=== PATIENT | male | born 1955 | race Caucasian/White ===

== ENCOUNTER → 2021-07-17 11:00 | Outpatient (BNVA) | payer MEDICARE, OTHER, SELFPAY | PROVIDERS: Visit Provider Nurse Practitioner Family | DX: I10 Essential (primary) hypertension (principal); Z12.5 Encounter for screening for malignant neoplasm of prostate | CPT/HCPCS: 80053; 80061; 84443; 85025; G0103 ==

== ENCOUNTER → 2021-08-27 09:19 | Outpatient (BNVA) | payer MEDICARE, OTHER, SELFPAY | PROVIDERS: PCP Nurse Practitioner Family; Visit Provider Nurse Practitioner Family | DX: R19.7 Diarrhea, unspecified (principal); Z90.49 Acquired absence of other specified parts of digestive tract; R19.8 Other specified symptoms and signs involving the digestive system and abdomen; K64.9 Unspecified hemorrhoids | CPT/HCPCS: 74018 ==

== ENCOUNTER → 2021-08-28 09:16 | Outpatient (BNVA) | payer MEDICARE, OTHER, SELFPAY | PROVIDERS: PCP Nurse Practitioner Family; Visit Provider Nurse Practitioner Family | DX: K64.9 Unspecified hemorrhoids (principal); R19.7 Diarrhea, unspecified; R19.8 Other specified symptoms and signs involving the digestive system and abdomen; Z90.49 Acquired absence of other specified parts of digestive tract; R10.9 Unspecified abdominal pain | CPT/HCPCS: 80053; 85025 ==

== ENCOUNTER 2021-09-18 09:32 | Outpatient (CLI) | payer MEDICARE, OTHER, SELFPAY ==
[2021-09-18] MEDS: iodixanol 320 mg/mL 100mL Btl IV (09:45)
[2021-09-18] MEDS: iohexol 300 mg/mL 50 mL Btl PO (09:45)
--- NOTE | 2021-09-18 10:00 | CT_ITS ---
WS: [id number] CT ABDOMEN AND PELVIS WITH CONTRAST HISTORY: Right-sided flank pain. Bloating, rectal restriction. History of colectomy and ulcerative co litis. TECHNIQUE: Imaging performed of the abdomen and pelvis with IV contrast. Single phase imaging of the abdomen. Coronal and sagittal reformats are submitted. All CT scans at [facility] use at [address] one of these dose optimization techniques: automated exposure control; mA and/or kV adjustment per patient size (includes targeted exams where dose is matched to clinical indication); or iterative re construction. IV CONTRAST: Visipaque 320; 95 mL IV. Oral contrast: Yes. DLP: 1145.16 mGy.cm COMPARISON: None available. Lower thorax: 2 mm nodule LEFT middle lobe may be a granuloma. Additional granuloma at the LEFT lung base. Heart is normal size. No hiatal hernia. Liver/biliary system: Normal size with no intrahepatic dilatation. Mild hepatic steatosis along the f alciform ligament. The portal vein is negative. Gallbladder: Contracted gallbladder. No adjacent inflammation. Pancreas: Normal size pancreas and pancreatic duct. No adjacent inflammation. Spleen: Normal size spleen. No mass or infarct. Adrenal glands: Normal. Right kidney: There is a large cystic mass associated with the upper pole of the RIGHT kidney. Mass m easures 9.8 x 4.4 cm and is causing mild distortion and displacement of the kidney. No solid mass or obstruction. Left kidney: Very tiny cortical hypodensities are too small to characterize. No solid mass or obstruc tion. Aorta: Mild atherosclerosis with no aneurysm. Lymphadenopathy: None. Free fluid: None. GI tract: Normally distended stomach. No small bowel obstruction. Patient is status post near complet e colectomy. Anastomotic sutures are noted towards the rectum. There is no obstruction. The small bow el loops are normal. No wall thickening. Abdominal wall: Unremarkable abdominal wall. No hernia. Pelvis: No free fluid. There are very few small benign-appearing lymph nodes in the pelvis. No inguin al adenopathy. Inguinal canals are patent bilaterally containing fat only. Negative urinary bladder. Bones: Unremarkable. CT/CT abdomen pelvis w con* [id number] IMPRESSION: 1. No acute abdominal or pelvic abnormalities are notified. 2. Patient is status post near complete colectomy. 3. No GI tract obstruction. 4. Large RIGHT renal cyst measures 9.8 x 4.4 cm. 5. Mildly contracted gallbladder is probably due to a nonfasting state.
== END 2021-09-18 09:33 | disposition home or self-care (01) ==
LOC: RAD 09:35
PROVIDERS: PCP Nurse Practitioner Family; Visit Provider Nurse Practitioner Family
DX: R19.7 Diarrhea, unspecified (principal); R10.9 Unspecified abdominal pain; Z90.49 Acquired absence of other specified parts of digestive tract; R19.8 Other specified symptoms and signs involving the digestive system and abdomen; N28.1 Cyst of kidney, acquired
CPT/HCPCS: 74177

== ENCOUNTER → 2022-06-04 10:52 | Outpatient (BNVA) | payer MEDICARE, OTHER, SELFPAY | PROVIDERS: PCP Nurse Practitioner Family; Visit Provider Nurse Practitioner Family | DX: M10.9 Gout, unspecified (principal); I10 Essential (primary) hypertension | CPT/HCPCS: 80053; 84550; 85025 ==

== ENCOUNTER 2022-06-08 09:26 | Outpatient (CLI) | payer MEDICARE, OTHER, SELFPAY ==
--- NOTE | 2022-06-08 09:30 | MR_ITS ---
WS: [id number] MRI RIGHT KNEE NONCONTRAST TECHNIQUE: Axial PD, coronal PD fat sat, coronal PD, sagittal PD, and sagittal PD fat-sat images obta ined. CLINICAL INFORMATION: M25.561 - Pain in right knee COMPARISON: None. FINDINGS: Distal quadriceps and patella tendons are intact. Normal ACL and PCL. Hypertrophic patella. Moderate to advanced narrowing medial and lateral joint compartments worse in the medial joint compartment wit h [id number] articulation. Chronic appearing tear involving the medial meniscus with peripheral ext rusion and chronic thinning. 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 Associated subchondral edema. Lobulated ganglion cyst along the distal tibial diametaphysis. Lobulated ganglion cyst measures 11 x 14 mm. Moderate chondromalacia patella. No subchondral edema. Normal medial and lateral patellar retinaculum . Normal lateral collateral ligament. Medial collateral ligament appears intact. Small amount of flui d and edema along the medial collateral ligament consistent with grade 1-2 injury. Parameniscal cyst along the medial meniscus. Small perimeniscal cyst measures 5 mm. MR/MR knee RT wo con* [id number] IMPRESSION: 1. Normal ACL and PCL. 2. Advanced medial joint compartment narrowing with [id number] articulation with subchondral cystic change involving the femoral condyle and tibial plateau . 3. Chronic appearing tear involving the medial meniscus with peripheral extrus ion. 4. Medial collateral ligament appears grossly intact but somewhat diminutive l ikely due to prior partial tear. Small amount of fluid and edema along the MCL. 5. Normal LCL. 6. 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 Outbridge grading: grade IV: full-thickness cartilage loss with underlying bone reactive changes
== END 2022-06-08 09:27 | disposition home or self-care (01) ==
LOC: RAD 09:27
PROVIDERS: PCP Nurse Practitioner Family; Visit Provider Nurse Practitioner Family
DX: M94.261 Chondromalacia, right knee (principal); S83.241A Other tear of medial meniscus, current injury, right knee, initial encounter; X58.XXXA Exposure to other specified factors, initial encounter
CPT/HCPCS: 73721

== ENCOUNTER → 2022-06-17 09:28 | Outpatient (BNVA) | payer MEDICARE, OTHER, SELFPAY | PROVIDERS: PCP Nurse Practitioner Family; Visit Provider Nurse Practitioner Family | DX: G89.29 Other chronic pain (principal); M23.90 Unspecified internal derangement of unspecified knee; M25.369 Other instability, unspecified knee; M25.561 Pain in right knee | CPT/HCPCS: 73562 ==

== ENCOUNTER → 2022-10-06 09:22 | Outpatient (BNVA) | payer MEDICARE, OTHER, SELFPAY | PROVIDERS: PCP Nurse Practitioner Family; Visit Provider Family Medicine | DX: Z51.81 Encounter for therapeutic drug level monitoring (principal); R53.81 Other malaise; R53.83 Other fatigue; R35.0 Frequency of micturition; E55.9 Vitamin D deficiency, unspecified; M1A.9XX0 Chronic gout, unspecified, without tophus (tophi); R73.09 Other abnormal glucose; Z13.220 Encounter for screening for lipoid disorders; N18.9 Chronic kidney disease, unspecified; I12.9 Hypertensive chronic kidney disease with stage 1 through stage 4 chronic kidney disease, or unspecified chronic kidney disease | CPT/HCPCS: 80053; 80061; 82306; 83036; 84153; 84443; 84550; 85025 ==

== ENCOUNTER 2022-12-16 12:42 | Outpatient (CLI) | payer MEDICARE, OTHER, SELFPAY ==
--- NOTE | 2022-12-16 12:44 | XR_ITS ---
WS: [id number] Exam: XR chest 2V* [id number] Date/Time of Exam: 12/16/2022 12:52 PM Reason For Exam: Chest pain No priors. The lungs are clear and fully inflated. Normal cardiomediastinal silhouette and regional bony element s. Tortuosity of the thoracic aorta. Surgical clips in the bilateral upper abdomen. XR/XR chest 2V* [id number] IMPRESSION: 1. No acute cardiopulmonary finding.
== END 2022-12-16 12:43 | disposition home or self-care (01) ==
PROVIDERS: PCP Family Medicine; Visit Provider Family Medicine
DX: R07.9 Chest pain, unspecified (principal)
CPT/HCPCS: 71046; 84484

== ENCOUNTER 2023-02-19 06:00 | Outpatient (RCR) | payer MEDICARE, OTHER, SELFPAY | END 2023-03-20 23:59 | disposition home or self-care (01) | LOC: APT 06:00 | PROVIDERS: Visit Provider Orthopaedic Surgery | DX: Z47.1 Aftercare following joint replacement surgery (principal); Z96.652 Presence of left artificial knee joint | CPT/HCPCS: 97110; 97112; 97530 ==

== ENCOUNTER 2023-03-21 06:00 | Outpatient (RCR) | payer MEDICARE, OTHER, SELFPAY | END 2023-04-20 23:59 | disposition home or self-care (01) | LOC: APT 06:00 | PROVIDERS: Visit Provider Orthopaedic Surgery | DX: Z47.1 Aftercare following joint replacement surgery (principal); Z96.652 Presence of left artificial knee joint | CPT/HCPCS: 97110; 97112; 97140; 97530 ==

== ENCOUNTER 2023-04-21 06:00 | Outpatient (RCR) | payer MEDICARE, OTHER, SELFPAY | END 2023-05-20 23:59 | disposition home or self-care (01) | LOC: APT 06:00 | PROVIDERS: Visit Provider Orthopaedic Surgery | DX: Z47.1 Aftercare following joint replacement surgery (principal); Z96.652 Presence of left artificial knee joint | CPT/HCPCS: 97110; 97140; 97530 ==

== ENCOUNTER → 2023-09-28 11:38 | Outpatient (BNVA) | payer MEDICARE, OTHER, SELFPAY | PROVIDERS: PCP Family Medicine; Visit Provider Family Medicine | DX: I10 Essential (primary) hypertension (principal); Z51.81 Encounter for therapeutic drug level monitoring; R35.0 Frequency of micturition; R03.0 Elevated blood-pressure reading, without diagnosis of hypertension; E55.9 Vitamin D deficiency, unspecified; E11.9 Type 2 diabetes mellitus without complications; R30.0 Dysuria; Z13.220 Encounter for screening for lipoid disorders | CPT/HCPCS: 80053; 80061; 81000; 82306; 83036; 84153; 84550; 85025; 87077; 87086; 87184 ==

== ENCOUNTER 2023-10-06 09:59 | Outpatient (CLI) | payer MEDICARE, OTHER, SELFPAY ==
--- NOTE | 2023-10-06 10:00 | US_ITS ---
WS: [id number] RENAL ULTRASOUND URINARY BLADDER ULTRASOUND HISTORY: CKD, UTI, urgency [id number] COMPARISON: CT abdomen 09/18/2021 TECHNIQUE: 2-D and color Doppler imaging of the kidney submitted. Right kidney: 10.5 cm x 6.9 cm x 6.7 cm. Large simple cyst RIGHT kidney superior pole measures 8.9 x 9.3 x 9.6 cm. No solid mass or obstructio n. The remaining kidney is negative. Left kidney: 9.2 cm x 3.5 cm x 4.3 cm. Normal echogenicity with no hydronephrosis or mass. Aorta: Normal. Urinary Bladder: Nondistended bladder. Mild prostate enlargement. Prevoid volume: 201 mL. Post void volume: 78 mL. IMPRESSION: 1. No renal obstruction or solid mass. 2. Large cyst upper pole RIGHT kidney. 3. Mild postvoid volume residual.
== END 2023-10-06 10:00 | disposition home or self-care (01) ==
LOC: RAD 10:01
PROVIDERS: PCP Family Medicine; Visit Provider Family Medicine
DX: N18.9 Chronic kidney disease, unspecified (principal); N39.0 Urinary tract infection, site not specified; R35.0 Frequency of micturition; N28.1 Cyst of kidney, acquired
CPT/HCPCS: 76770; 76857

== ENCOUNTER 2024-08-24 15:05 | Outpatient (CLI) | payer MEDICARE, OTHER, SELFPAY ==
--- NOTE | 2024-08-24 15:09 | XRR_ITS ---
PROCEDURE INFORMATION: Exam: XR Chest Exam date and time: 08/24/2024 3:25 PM Age: 69 years old Clinical indication: Pain; Chest pressure; Additional info: Chest pains and cough x 3 wks TECHNIQUE: Imaging protocol: Radiologic exam of the chest. Views: 2 views. COMPARISON: CR XR chest 2V* [id number] 12/16/2022 12:53 PM FINDINGS: Lungs: No significant active pathology. Pleural spaces: No pleural effusion or pneumothorax. Heart/Mediastinum: Unremarkable. Diaphragm: Mildly elevated right hemidiaphragm. Bones/joints: Mild degenerative change present in the spine. Intraperitoneal space: Surgical clips noted in the upper abdomen. XR/XR chest 2V* [id number] IMPRESSION: No acute pathology or significant interval change.
== END 2024-08-24 15:06 | disposition home or self-care (01) ==
LOC: RAD 15:09
PROVIDERS: PCP Family Medicine; Visit Provider Family Medicine
DX: R07.9 Chest pain, unspecified (principal); Z51.81 Encounter for therapeutic drug level monitoring; R25.2 Cramp and spasm; R93.5 Abnormal findings on diagnostic imaging of other abdominal regions, including retroperitoneum; M47.9 Spondylosis, unspecified
CPT/HCPCS: 71046; 80053; 83735

== ENCOUNTER 2024-09-09 11:12 | Emergency (ER) | payer MEDICARE, SELFPAY ==
[2024-09-09 12:01] VITALS: BP 126/79; PULSE 92; RESP 18; TEMP 36.7; O2SAT 96; BMI 27.1
--- NOTE | 2024-09-09 12:14 | XRR_ITS ---
PROCEDURE INFORMATION: Exam: XR Chest Exam date and time: 09/09/2024 12:33 PM Age: 69 years old Clinical indication: Chest pressure; Chest pain TECHNIQUE: Imaging protocol: Radiologic exam of the chest. Views: 1 view. COMPARISON: CR XR chest 2V* [id number] 08/24/2024 3:25 PM FINDINGS: Lungs: Pulmonary vessels are within normal limits. Bibasilar linear densities are seen. Pleural spaces: No pneumothorax. Heart/Mediastinum: Cardiomediastinal silhouette is within normal limits. Bones/joints: Unremarkable. XR/XR chest 1V portable [id number] IMPRESSION: Bibasilar linear densities are seen. Finding could represent scarring or atelectasis.
--- NOTE | 2024-09-09 12:19 | ED_ITS ---
HPI - Back Pain/Injury 2 General: Chief Complaint: Back Pain/Injury Stated Complaint: back pain Time Seen by Provider: 09/09/24 12:00 Source: patient Mode of arrival: ambulatory Limitations: no limitations History of Present Illness: 69-year-old male states has been having right upper back pain for the last 2 days states it wraps around his chest states much worse with movement and palpation denies any known injury he denies any weakness denies any midline pain. He denies any shortness of breath Associated symptoms: Deny abdominal pain, chills, fever(s), nausea or vomiting Related Data Previous Rx's ?Medication ?Instructions ?Recorded allopurinol 100 mg tablet 100 mg PO DAILY #90 tabs lisinopril 10 mg tablet 10 mg PO DAILY #90 tabs 06/21 01/12 methocarbamol 750 mg tablet 750 mg PO Q6H PRN spasms # 20 tabs 09/09/24 Allergies Allergy/AdvReac Type Severity Reaction Status Date / Time No Known Allergies Allergy Unverified 05/28/22 14:33 Review of Systems 2 Const: Denies: fever(s), chills, body aches or change in appetite ENMT: Denies: throat pain or dental pain Card: Denies: chest pain Resp: Denies: dyspnea GI: Denies: abdominal pain, nausea, vomiting or diarrhea Musc: Reports: back pain; Denies: neck pain Skin/Breast: Denies: rash Neuro: Denies: headache(s) PFSH ED 2 PFSH: Medical History (Updated 09/09/24 @ 14:47 by Vaibhav Chew MD) Primary hypertension Surgical History H/O tooth extraction 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/2023 - Dr Croft History of surgical amputation of finger Left fourth distal finger H/O left knee surgery Meniscal tear History of colectomy History of partial surgical removal of colon Family History Brother Crohn's disease Brother Ulcerative colitis Father CAD (coronary artery disease), Onset Age: 72 Mother CAD (coronary artery disease), Onset Age: 92 of CHF Social History Smoking and tobacco/nicotine status: never used tobacco/nicotine Quit status (tobacco/nicotine): has quit using Year quit tobacco: 2005 Former quit date comment: Chewed tobacco Second hand smoke exposure: No Alcohol intake: never Substance/Drug Use: never 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 history: 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, 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 Adopted: No Caregiver/support person: No Lives independently: Yes Household members: spouse Housing: House Marital status: Number of children: 3 Highest education level completed: High School Graduate service: No Current occupational status: retired Physical Exam 2 Const: COMMON NORMALS: no acute distress, patient oriented x3 and healthy appearing HENMT: COMMON NORMALS: normocephalic and atraumatic HEAD & SCALP: n ormocephalic and atraumatic Eye: COMMON NORMALS: conjunctivae normal CONJUNCTIVA: Yes conjunctivae normal Neck/C-Spine: COMMON NORMALS: full ROM and supple Chest: COMMONS NORMALS: normal inspection of the chest and normal palpation of entire chest wall Resp: COMMON NORMALS: normal respiratory effort, No retractions, No use of accessory muscles and clear to auscultation bilaterally AUSCULTATION: clear to auscultation bilaterally Cardio: COMMON NORMALS: regular rate, regular rhythm and No murmurs present (Cardio) RATE: regular rate RHYTHM: regular rhythm GI: COMMON NORMALS: Normal to inspection, nondistended, normoactive bowel sounds present, Soft to palpation, non-tender and no masses PALPATION: Yes Soft to palpation Back/Pelvis: OTHER: No midline tenderness tenderness over right upper back reproduces his pain Extremity: COMMON NORMALS: normal to inspection and full ROM Neuro: COMMON NORMALS: patient oriented x3, moves all extremities and no focal motor deficits Psych: COMMON NORMALS: mental status grossly normal, Normal thought process present and cooperative THOUGHT PROCESS: Normal thought process present Skin: COMMON NORMALS: no rashes or lesions noted and no wounds GENERAL SKIN EXAM: no rashes or lesions noted Course 2 Vital Signs: Vital signs: Vital Signs Temperature 98.1 F 09/09/24 12:01 Pulse Rate 91 09/09/24 14:09 Respiratory Rate 18 09/09/24 12:01 Blood Pressure 129/80 09/09/24 14:09 Pulse Oximetry 93 09/09/24 14:09 Oxygen Delivery Me thod Room Air 09/09/24 14:09 MDM - Back Pain/Injury Medical Decision Making Patient presents here with back pain is likely muscular in nature he is point tender on exam he had some pain wrap to his chest is atypical in nature troponins are normal imaging is normal as well he feels improved he stable for discharge follow-up PCP return if worsening. Medical Records I reviewed the patient's medical records. Labs I reviewed the patient's lab results. 09/09/24 12:29 09/09/24 12:29 Radiology Impressions Chest X-Ray 09/09/24 12:14 IMPRESSION: Bibasilar linear densities are seen. Finding could represent scarring or atelectasis. Laboratory Results WBC 8.74 10^3/uL (3.29-11.43) 09/09/24 12: RBC 4.40 10^6/uL (3.85-5.65) 09/09/24 12: Hgb 13.80 g/dL (11.27-16.99) 09/09/24 12: Hct 41.9 % (37-53) 09/09/24 12: MCV 95.2 fl (82-101) 09/09/24 12: MCH 31.4 pg (27-33) 09/09/24 12: MCHC 32.9 g/dL (30-55) 09/09/24 12: RDW 12.2 % (12.1-15.1) 09/09/24 12: Plt Count 279 10^3/cmm (157-399) 09/09/24 12: MPV 9.4 fL (7.4-10.4) 09/09/24 12: Neut % (Auto) 75.6 % 09/09/24 12: Lymph % (Auto) 12.9 % 09/09/24 12: [place] % (Auto) 10.6 % 09/09/24 12: Eos % (Auto) 0.3 % 09/09/24 12: Baso % (Auto) 0.3 % 09/09/24 12: Neut # (Auto) 6.59 10^3/uL (1.8-7.7) 09/09/24 12: Lymph # (Auto) 1.1 10^3/uL (0.8-4.8) 09/09/24 12:29 [place] # (Auto) 0.9 10^3/uL (0.2-0.9) 09/09/24 12: Eos # (Auto) 0.0 10^3/uL (0.0-0.8) 09/09/24 12: Baso # (Auto) 0.0 10^3/uL (0.0-0.1) 09/09/24 12: Nucleated RBC % (auto) 0 % 09/09/24 12: Nucleated RBCs # 0.0 /100WBC 09/09/24 12: Sodium 134 mmol/L (136-145) L 09/09/24 12: Potassium 4.4 mmol/L (3.5-5.1) 09/09/24 12: Chloride 97 mmol/L (98-107) L 09/09/24 12: Carbon Dioxide 24 mmol/L (22-29) 09/09/24 12: Anion Gap 17.4 (5-19) 09/09/24 12: BUN 13 mg/dL (8-23) 09/09/24 12: Creatinine 1.2 mg/dL (0.7-1.2) 09/09/24 12: GFR Calculation Not Reportable 09/09/24 12: Glucose 101 mg/dL (65-115) 09/09/24 12: Calculated Osmolality 278 mOsm/kg (285-295) L 09/09/24 12: Calcium 9.3 mg/dL (8.5-10.5) 09/09/24 12: Total Bilirubin 0.6 mg/dL (0.15-1.2) 09/09/24 12: AST 13 U/L (0-40) 09/09/24 12: ALT < 5 U/L (0-41) 09/09/24 12: Alkaline Phosphatase 27 U/L (40-130) L 09/09/24 12: Troponin T Baseline 22 ng/L (0-15) H 09/09/24 12:29 Troponin T 120 Minute 16.37 ng/L (0-15) H 09/09/24 14:16 Delta Troponin T -5.63 ABS# (0-10) L 09/09/24 14:16 Total Protein 7.4 g/dL (6.6-8.7) 09/09/24 12: Albumin 4.2 g/dL (3.5-5.2) 09/09/24 12: Globulin 3.2 g/dL (1.3-4.6) 09/09/24 12:29 Urine Color Yellow (Yellow) 09/09/24 12:41 Urine Appearance Clear (CLEAR) 09/09/24 12:41 Urine pH 5.0 (5-7) 09/09/24 12:41 Ur Specific [place] 1.024 (1.005-1.030) 09/09/24 12:41 Urine Protein Trace (Negative) A 09/09/24 12:41 Urine Glucose (UA) Negative (Normal) 09/09/24 12:41 Urine Ketones Trace (Negative) 09/09/24 12:41 Urine Blood Negative (Negative) 09/09/24 12:41 Urine Nitrate Negative (Negative) 09/09/24 12:41 Urine Bilirubin Negative (Negative) 09/09/24 12:41 Urine Urobilinogen 0.2 mg/dL (Negative) 09/09/24 12:41 Ur Leukocyte Esterase Negative (Negative) 09/09/24 12:41 Urine RBC 0-2 /hpf (0-2) 09/09/24 12:41 Urine WBC 0-5 /hpf (0-5) 09/09/24 12:41 Ur Squamous Epith Cells 0-5 /hpf (0-5) 09/09/24 12:41 Amorphous Sediment Not Reportable 09/09/24 12:41 Urine Bacteria None seen /hpf (NONE) 09/09/24 12:41 Hyaline Casts 3.30 /lpf 09/09/24 12:41 All radiology interpretation(s) finalized by discharge EKG Data EKG 1: I personally reviewed and interpreted this EKG as follows: EKG interpretation date: 09/09/24 EKG interpretation time: 12:24 Interpretation: nsr hr [address] elevation qrs 88 qtc 378 Discharge Plan Discharge Patient Disposition: Home Clinical Impression: Back pain Condition: Stable Prescriptions: New methocarbamol 750 mg tablet 750 mg PO Q6H PRN (Reason: spasms) Qty: 20 0RF No Action lisinopril 10 mg tablet 10 mg PO DAILY Qty: 90 3RF allopurinol 100 mg tablet 100 mg PO DAILY Qty: 90 3RF Discharge Orders: Discharge ED (Routine); Ordered 09/09/24 Ordered By: Vaibhav Chew Referrals: Hawk Townsend MD [Primary Care Provider] - 4-7 days Discharge Diet: Advance as tolerated Discharge Activity: Resume usual activity Patient Instructions: Back Pain (ED) Print Language: Portuguese Coding Level of Care Code ED Diesel Engine Mechanic Apprentice for Michael Garza
--- NOTE | 2024-09-09 12:24 | ECG_ITS ---
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 Measurements Intervals [place] Rate: 90 P: 60 DE: 171 QRS: 35 QRSD: 88 T: 55 QT: 330 QTc: 405 Interpretive Statements SINUS RHYTHM No previous ECG available for comparison Electronically Signed On 09-09-2024 14:39:41 CDT by Rashid Lopez M.D. [email or web address]
[2024-09-09 12:44] LABS: Basophils % 0.3 %; Eosinophils % 0.3 %; Hematocrit 41.9 % (37-53); Lymphocytes # 1.1 10^3/uL (0.8-4.8); Lymphocytes % 12.9 %; Mean Corpuscular HGB Conc 32.9 g/dL (30-55); Mean Corpuscular Hemoglobin 31.4 pg (27-33); Mean Corpuscular Volume 95.2 fl (82-101); Mean Platelet Volume 9.4 fL (7.4-10.4); Monocytes # 0.9 10^3/uL (0.2-0.9); Monocytes % 10.6 %; Neutrophils # 6.59 10^3/uL (1.8-7.7); Neutrophils % 75.6 %; Nucleated Red Blood Cells % 0 %; Platelet Count 279 10^3/cmm (157-399); Red Cell Distribution Width 12.2 % (12.1-15.1); White Blood Count 8.74 10^3/uL (3.29-11.43)
[2024-09-09 12:52] LABS: Bilirubin Urine Negative (Negative); Blood Urine Negative (Negative); Glucose Urine UA Negative (Normal); Ketones Urine Trace (Negative); Leukocyte Esterase Urine Negative (Negative); Nitrate Urine Negative (Negative); Protein Urine Trace (Negative); Specific Gravity, Urine 1.024 (1.005-1.030); Urine Appearance Clear (CLEAR); Urine Color Yellow (Yellow); Urobilinogen Urine 0.2 mg/dL (Negative)
[2024-09-09 12:54] LABS: Troponin(5th) Baseline 22 ng/L (0-15)
[2024-09-09 12:55] LABS: Add Urine Microscopic? YES; Bacteria Urine None Seen /hpf; RBC Urine 0-2 /hpf (0-2); Squamous Epithelial Cell Urine 0-5 /hpf (0-5); WBC Urine 0-5 /hpf (0-5)
[2024-09-09 13:01] LABS: Alanine Aminotransferase < 5 U/L (0-41); Albumin Level 4.2 g/dL (3.5-5.2); Alkaline Phosphatase 27 U/L (40-130); Anion Gap 17.4 (5-19); Aspartate Amino Transferase 13 U/L (0-40); Blood Urea Nitrogen 13 mg/dL (8-23); Calcium 9.3 mg/dL (8.5-10.5); Carbon Dioxide 24 mmol/L (22-29); Chloride 97 mmol/L (98-107); Creatinine Clr Calc Pharmacy 54.9138; Globulin 3.2 g/dL (1.3-4.6); Glucose 101 mg/dL (65-115); Osmolality Calculated 278 mOsm/kg (285-295); Potassium 4.4 mmol/L (3.5-5.1); Sodium 134 mmol/L (136-145); Total Bilirubin 0.6 mg/dL (0.15-1.2); Total Protein 7.4 g/dL (6.6-8.7)
[2024-09-09 14:09] VITALS: BP 129/80; PULSE 91; O2SAT 93
[2024-09-09] MEDS: HYDROcodone-acetaminophen 7.5-325 mg Tablet 1 TAB PO (14:10)
[2024-09-09 14:41] LABS: Troponin 5 2HR 16.37 ng/L (0-15)
[2024-09-09 14:42] LABS: Troponin 5 2HR Delta -5.63 ABS# (0-10)
[2024-09-09 15:03] VITALS: BP 126/80; PULSE 88; RESP 16; O2SAT 92
== END 2024-09-09 15:05 | disposition home or self-care (01) ==
PROVIDERS: Emergency Provider Emergency Medicine; PCP Family Medicine
DX: M54.9 Dorsalgia, unspecified (principal); Z87.891 Personal history of nicotine dependence; I10 Essential (primary) hypertension
CPT/HCPCS: 36415; 71045; 80053; 81001; 84484; 85025; 93005; 99285; J9999

== ENCOUNTER 2024-09-20 08:30 | Emergency (ER) | payer MEDICARE, SELFPAY ==
[2024-09-20] VITALS (13 sets, daily range): BP systolic 111–138; BP diastolic 75–90; PULSE 62–82; RESP 14–16; TEMP 36.7; O2SAT 90–94; BMI 25.8
--- NOTE | 2024-09-20 08:38 | ECG_ITS ---
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
--- NOTE | 2024-09-20 08:58 | ED_ITS ---
HPI - Dizziness 2 General: Chief Complaint: Dizziness Stated Complaint: dizzy, weakness, seeing double Time Seen by Provider: 09/20/24 08:50 History of Present Illness: HPI Narrative: Patient presents to the ER with complaints of intermittent dizziness and seeing double for the last week or so. Patient states it has been getting worse and started last night and stayed all throughout the night. Patient also had some confusion and inability to form words. He is also complaining of a sinus type headache that he gets frequently. Patient recently was in the ER for chest pain and was discharged home on a muscle relaxer. Patient thought the muscle relaxer was causing it but he stopped it and his symptoms did not improve. Patient's only medications are allopurinol for gout and lisinopril for high blood pressure. Related Data Home Medications ?Medication ?Instructions ?Recorded ?Confirmed lactobacillus combination no.4 3 3,000 mmu cells PO DA ROSETTA 09/20/24 09/20/24 billion cell capsule (Probiotic) Previous Rx's ?Medication ?Instructions ?Recorded allopurinol 100 mg tablet 100 mg PO DAILY #90 tabs lisinopril 10 mg tablet 10 mg PO DAILY #90 tabs 06/21 01/12 methocarbamol 750 mg tablet 750 mg PO Q6H PRN spasms # 20 tabs 09/09/24 Allergies Allergy/AdvReac Type Severity Reaction Status Date / Time No Known Allergies Allergy Unverified 05/28/22 14:33 Review of Systems 2 General: Reports: 10 or more systems reviewed and unremarkable except in HPI and below PFSH ED 2 PFSH: Medical History Primary hypertension Surgical History H/O tooth extraction 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/2023 - Dr Croft History of surgical amputation of finger Left fourth distal finger H/O left knee surgery Meniscal tear History of colectomy History of partial surgical removal of colon Family History Brother Crohn's disease Brother Ulcerative colitis Father CAD (coronary artery disease), Onset Age: 72 Mother CAD (coronary artery disease), Onset Age: 92 of CHF Social History Smoking and tobacco/nicotine status: never used tobacco/nicotine Quit status (tobacco/nicotine): has quit using Year quit tobacco: 2005 Former quit date comment: Chewed tobacco Second hand smoke exposure: No Alcohol intake: never Substance/Drug Use: never 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 history: 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, 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 Adopted: No Caregiver/support person: No Lives independently: Yes Household members: spouse Housing: House Marital status: Number of children: 3 Highest education level completed: High School Graduate service: No Current occupational status: retired Physical Exam 2 Const: COMMON NORMALS: no acute distress, average body habitus, patient oriented x3, no limitations, healthy appearing, alert and well nourished HENMT: COMMON NORMALS: normocephalic, atraumatic, hearing grossly normal bilaterally, external ears normal, EAC's normal, TM's normal bilaterally, Normal external nose present, Normal nasal mucous membranes and turbinates present, moist oral mucous membranes and oropharynx normal HEAD & SCALP: normocephalic and atraumatic NOSE: Normal external nose present and Normal nasal mucous membranes and turbinates present EXTERNAL EAR: Yes external ears normal E XTERNAL AUDITORY CANAL: EAC's normal TYMPANIC MEMBRANE: TM's normal bilaterally Neck/C-Spine: COMMON NORMALS: full ROM, no lymphadenopathy, supple, no meningeal signs and no JVD Chest: COMMONS NORMALS: normal inspection of the chest and normal palpation of entire chest wall Resp: COMMON NORMALS: normal respiratory effort, No retractions, No use of accessory muscles and clear to auscultation bilaterally AUSCULTATION: clear to auscultation bilaterally Cardio: COMMON NORMALS: no JVD, regular rate, regular rhythm, S1 normal heart sound present, S2 normal heart sound present, No gallops present (Cardio), No clicks present (Cardio), No murmurs present (Cardio) and No rub (Cardio) R ATE: regular rate RHYTHM: regular rhythm HEART SOUNDS: S1 normal heart sound present and S2 normal heart sound present GI: COMMON NORMALS: Normal to inspection, nondistended, normoactive bowel sounds present, Soft to palpation, non-tender, No hepatosplenomegaly present and no masses PALPATION: Yes Soft to palpation and Yes No hepatosplenomegaly present Neuro: COMMON NORMALS: patient oriented x3 SENSORIUM/ORIENTATION: Yes alert MENINGEAL SIGNS: Yes no meningeal signs Course 2 Vital Signs: Vital signs: Vital Signs Temperature 98.0 F 09/20/24 08:39 Pulse Rate 82 09/20/24 16:00 Respiratory Rate 16 09/20/24 08:39 Blood Pressure 119/75 09/20/24 16:00 Pulse Oximetry 92 09/20/24 16:00 Oxygen Delivery Me thod Room Air 09/20/24 16:00 MDM - Dizziness Medical Decision Making Per CT patient probably has metastatic cancer with thrombosed SMV, we cannot take care of this here and will need to transfer patient to higher level facility. We will push the images to the cloud, contact higher level facility with potential IR, surgery, heme-onc, We will start with Odilia Calderon hospitalist Odilia Cabrera accepted in transfer. Medical Records I reviewed the patient's medical records. Lab Data I reviewed the patient's lab results. 09/20/24 08:52 09/20/24 08:52 Radiology Impressions Chest X-Ray 09/20/24 08:59 IMPRESSION: No acute intrathoracic findings. Head/Neck CTA 09/20/24 08:59 IMPRESSION: 1. No cervical carotid artery stenosis or dissection. 2. [place]: No significant stenosis or plaque. No aneurysm. 3. No acute intracranial hemorrhage or edema. 4. Mild cerebral atrophy and small vessel disease. 5. Increased soft tissue at the AP window and possible high RIGHT thoracic inlet lymph node. These findings are seen only on a few of the images obtained and there is some motion artifact. Findings may be artifact. Recommend follow-up chest CT with IV contrast to exclude AP window adenopathy/mass. Chest CT 09/20/24 11:00 IMPRESSION: 1. Extensive mediastinal and hilar lymphadenopathy. Hypervascular lymph nodes at multiple stations consistent with malignancy. Suspect extra renee extension as there is infiltration of soft tissue through the mediastinal fat. 2. Abnormal esophagus. Marked thickening of the distal esophagus with intraluminal mass. Abnormal findings extend into the GE junction and there is diffuse stomach wall thickening and soft tissue infiltration surrounding the stomach and through the gastrohepatic ligament. Consistent with neoplasm. Suspect esophageal tumor or possible gastric carcinoma/linitis plastica. Upper endoscopy recommended. 3. Gastrohepatic ligament adenopathy and tumor infiltration with additional lymphadenopathy towards the celiac axis and retrocrural. 4. Thrombus noted within the portosplenic junction extending into the SMV. Additional thrombus is highly likely within the portal vein although opacification is limited due to phase of contrast injection. Tumor thrombus versus bland thrombus. 5. Contracted gallbladder. 6. Peripheral consolidation RIGHT lower lobe with adjacent small pleural fluid consolidation. Additional very small bilateral layering pleural effusions. Pleural effusions are not sufficient for thoracentesis. Notified Kurt Jolly DO at 09/20/2024 2:20 PM. Laboratory Results WBC 6.38 10^3/uL (3.29-11.43) 09/20/24 08:52 RBC 4.16 10^6/uL (3.85-5.65) 09/20/24 08:52 Hgb 12.80 g/dL (11.27-16.99) 09/20/24 08:52 Hct 38.9 % (37-53) 09/20/24 08:52 MCV 93.5 fl (82-101) 09/20/24 08:52 MCH 30.8 pg (27-33) 09/20/24 08:52 MCHC 32.9 g/dL (30-55) 09/20/24 08:52 RDW 12.2 % (12.1-15.1) 09/20/24 08:52 Plt Count 304 10^3/cmm (157-399) 09/20/24 08:52 MPV 9.9 fL (7.4-10.4) 09/20/24 08:52 Neut % (Auto) 64.5 % 09/20/24 08:52 Lymph % (Auto) 19.1 % 09/20/24 08:52 Blanco % (Auto) 9.6 % 09/20/24 08:52 Eos % (Auto) 6.0 % 09/20/24 08:52 Baso % (Auto) 0.5 % 09/20/24 08:52 Neut # (Auto) 4.12 10^3/uL (1.8-7.7) 09/20/24 08:52 Lymph # (Auto) 1.2 10^3/uL (0.8-4.8) 09/20/24 08:52 [place]anco # (Auto) 0.6 10^3/uL (0.2-0.9) 09/20/24 08:52 Eos # (Auto) 0.4 10^3/uL (0.0-0.8) 09/20/24 08:52 Baso # (Auto) 0.0 10^3/uL (0.0-0.1) 09/20/24 08:52 Nucleated RBC % (auto) 0 % 09/20/24 08:52 Nucleated RBCs # 0.0 /100WBC 09/20/24 08:52 PT 14.00 SECONDS (12.1-14.9) 09/20/24 08:52 INR 1.01 (0.8-1.2) 09/20/24 08:52 Sodium 137 mmol/L (136-145) 09/20/24 08:52 Potassium 4.6 mmol/L (3.5-5.1) 09/20/24 08:52 Chloride 100 mmol/L (98-107) 09/20/24 08:52 Carbon Dioxide 25 mmol/L (22-29) 09/20/24 08:52 Anion Gap 16.6 (5-19) 09/20/24 08:52 BUN 14 mg/dL (8-23) 09/20/24 08:52 Creatinine 1.2 mg/dL (0.7-1.2) 09/20/24 08:52 GFR Calculation Not Reportable 09/20/24 08:52 Glucose 122 mg/dL (65-115) H 09/20/24 08:52 Calculated Osmolality 286 mOsm/kg (285-295) 09/20/24 08:52 Uric Acid 6.8 mg/dL (3.4-7.0) 09/20/24 08:52 Calcium 9.1 mg/dL (8.5-10.5) 09/20/24 08:52 Magnesium 2.1 mg/dL (1.7-2.3) 09/20/24 08:52 Total Bilirubin 0.3 mg/dL (0.15-1.2) 09/20/24 08:52 AST 17 U/L (0-40) 09/20/24 08:52 ALT 7 U/L (0-41) 09/20/24 08:52 Alkaline Phosphatase 27 U/L (40-130) L 09/20/24 08:52 Troponin T Baseline 44 ng/L (0-15) H 09/20/24 08:52 Troponin T 120 Minute 48.09 ng/L (0-15) H 09/20/24 10:37 Delta Troponin T 4.09 ABS# (0-10) 09/20/24 10:37 Troponin T Hi Sens 6Hr 70.92 ng/L (0-15) H 09/20/24 14:53 Troponin T Hi Sens 6Hr Delta 26.92 ng/L (0-12) H* 09/20/24 14:53 C-Reactive Protein 38.7 mg/L (0.0-4.9) H 09/20/24 08:52 Total Protein 7.0 g/dL (6.6-8.7) 09/20/24 08:52 Albumin 3.8 g/dL (3.5-5.2) 09/20/24 08:52 Globulin 3.2 g/dL (1.3-4.6) 09/20/24 08:52 TSH 1.42 uIU/mL (0.27-4.20) 09/20/24 08:52 Urine Color Yellow (Yellow) 09/20/24 10:11 Urine Appearance Clear (CLEAR) 09/20/24 10:11 Urine pH 5 (5-7) 09/20/24 10:11 Ur Specific [place] 1.015 (1.005-1.030) 09/20/24 10:11 Urine Protein Neg (Negative) 09/20/24 10:11 Urine Glucose (UA) Norm (Normal) 09/20/24 10:11 Urine Ketones Negative (Negative) 09/20/24 10:11 Urine Blood Neg (Negative) 09/20/24 10:11 Urine Nitrate Negative (Negative) 09/20/24 10:11 Urine Bilirubin Neg (Negative) 09/20/24 10:11 Urine Urobilinogen Norm mg/dL (Negative) 09/20/24 10:11 Ur Leukocyte Esterase Negative (Negative) 09/20/24 10:11 Amorphous Sediment Not Reportable 09/20/24 10:11 Urine Opiates Screen Negative ng/mL (Negative) 09/20/24 10:11 Ur Barbiturates Screen Negative ng/mL (Negative) 09/20/24 10:11 Ur Phencyclidine Scrn Negative ng/mL (Negative) 09/20/24 10:11 Ur Amphetamines Screen Negative ng/mL (Negative) 09/20/24 10:11 U Benzodiazepines Scrn Negative ng/mL (Negative) 09/20/24 10:11 Urine Cocaine Screen Negative ng/mL (Negative) 09/20/24 10:11 U Marijuana (THC) Screen Negative ng/mL (Negative) 09/20/24 10:11 Influenza A (PCR) Negative (Negative) 09/20/24 09:14 Influenza Type B (PCR) Negative (Negative) 09/20/24 09:14 RSV (PCR) Negative (Negative) 09/20/24 09:14 SARS-CoV-2 (PCR) Negative (Negative) 09/20/24 09:14 All radiology interpretation(s) finalized by discharge Discharge Plan Discharge Patient Disposition: Xfer Short-Term Hosp Clinical Impression: Lymphadenopathy, mediastinal, Esophageal mass, Superior mesenteric vein thrombosis, Pleural effusion, bilateral Condition: Stable Prescriptions: No Action lisinopril 10 mg tablet 10 mg PO DAILY Qty: 90 3RF allopurinol 100 mg tablet 100 mg PO DAILY Qty: 90 3RF methocarbamol 750 mg tablet 750 mg PO Q6H PRN (Reason: spasms) Qty: 20 0RF Probiotic 3 billion cell Capsule 3,000 mmu cells PO DAILY Rx Instructions: administer with a meal Referrals: Hawk Townsend MD [Primary Care Provider] - Print Language: Armenian Coding Level of Care Code ED It Service Manager for Michael Garza
--- NOTE | 2024-09-20 08:59 | XRR_ITS ---
PROCEDURE INFORMATION: Exam: XR Chest Exam date and time: 09/20/2024 8:07 AM Age: 69 years old Clinical indication: Cough; Additional info: Hypertension TECHNIQUE: Imaging protocol: Radiologic exam of the chest. Views: 1 view. COMPARISON: CR (CHEST, ) 09/09/2024 12:33 PM FINDINGS: Lungs: No consolidation. Similar right basilar atelectasis. Pleural spaces: No sizable pleural effusion or pneumothorax. Heart/Mediastinum: No cardiomegaly. Bones/joints: Unremarkable. XR/XR chest 1V portable [id number] IMPRESSION: No acute intrathoracic findings.
--- NOTE | 2024-09-20 08:59 | CT_ITS ---
WS: [id number] CT ANGIOGRAM CEREBRAL AND CAROTID ARTERIES HISTORY: Vertigo, vision changes, intermittent neurosymptoms TECHNIQUE: CT angiogram is performed of the carotid and cerebral arteries. During arterial injection imaging is obtained from the skull vertex to the aortic arch in 1.25 mm imaging. Coronal and sagittal reformats are submitted. Additional multi planar reformats of the carotid and cerebral arteries are submitted, MIP imaging also reviewed. NASCET criteria utilized. All CT scans at [facility] use at least one of these dose optimization techniques: automated exposure control; mA and/or kV adjustment per patient size (includes targeted exams where dose is matched to clinical indication); or iterative reconstruction. CONTRAST: Omnipaque 350; 100 mL IV. DLP: 985.06 mGy.cm COMPARISON: None available. Noncontrast CT head: No acute intracranial hemorrhage or edema. Mild symmetric atrophy and small vessel disease. No acute focal area of sulcal effacement. Paranasal sinuses are clear. No pituitary enlargement. Carotid Angiogram: Right carotid: Common carotid artery: Arises normally from the innominate artery. No significant plaque or stenosis. Internal carotid artery: No plaque or stenosis. External carotid artery: Patent. Left carotid: Common carotid artery: Arises normally from the aorta. No significant plaque or stenosis. Internal carotid artery: No plaque or stenosis. External carotid artery: Patent. Right vertebral artery: Unremarkable. Left vertebral artery: Unremarkable. Arises normally from the subclavian artery. Subclavian arteries: No stenosis or significant abnormality. Upper thorax: Normal. Thyroid gland: Normal. Osseous structures: Unremarkable. CEREBRAL ANGIOGRAM: Intracranial vertebral arteries: Normal with no significant atherosclerosis. Basilar artery: No significant stenosis or occlusion. No aneurysm. Intracranial Internal carotid arteries: Demonstrates no significant stenosis or plaque. Middle cerebral arteries: Normal. Anterior cerebral arteries and ACOM: Normal. Posterior cerebral arteries and PCOM's: Normal. Dural venous sinuses are normally enhancing. Mastoid air cells: Normal. Paranasal sinuses: Normal. Calvarium: Normal. Seen only on a few images of the upper thorax is prominent soft tissue in the AP window needs to be further evaluated for possible mass. There are a few additional smaller adjacent lymph nodes. The area of concern measures approximately 3.1 x 2.5 cm. Possible RIGHT thoracic inlet lymph node measuring 1 .2 cm. There are a few small bilateral cervical chain lymph nodes do not which do not appear to be enlarged. CT/CT angio headneck* [id number] IMPRESSION: 1. No cervical carotid artery stenosis or dissection. 2. [place]: No significant stenosis or plaque. No aneurysm. 3. No acute intracranial hemorrhage or edema. 4. Mild cerebral atrophy and small vessel disease. 5. Increased soft tissue at the AP window and possible high RIGHT thoracic inl et lymph node. These findings are seen only on a few of the images obtained and there is some motion artifact. Findings may be artifact. Recommend follow-up c hest CT with IV contrast to exclude AP window adenopathy/mass.
[2024-09-20 09:13] LABS: Basophils % 0.5 %; Eosinophils # 0.4 10^3/uL (0.0-0.8); Hematocrit 38.9 % (37-53); Lymphocytes # 1.2 10^3/uL (0.8-4.8); Lymphocytes % 19.1 %; Mean Corpuscular HGB Conc 32.9 g/dL (30-55); Mean Corpuscular Hemoglobin 30.8 pg (27-33); Mean Corpuscular Volume 93.5 fl (82-101); Mean Platelet Volume 9.9 fL (7.4-10.4); Monocytes # 0.6 10^3/uL (0.2-0.9); Monocytes % 9.6 %; Neutrophils # 4.12 10^3/uL (1.8-7.7); Neutrophils % 64.5 %; Nucleated Red Blood Cells % 0 %; Platelet Count 304 10^3/cmm (157-399); Red Blood Count 4.16 10^6/uL (3.85-5.65); Red Cell Distribution Width 12.2 % (12.1-15.1); White Blood Count 6.38 10^3/uL (3.29-11.43)
[2024-09-20 09:18] LABS: INR 1.01 (0.8-1.2)
[2024-09-20 09:23] LABS: Troponin(5th) Baseline 44 ng/L (0-15)
[2024-09-20 09:37] LABS: Alanine Aminotransferase 7 U/L (0-41); Albumin Level 3.8 g/dL (3.5-5.2); Alkaline Phosphatase 27 U/L (40-130); Blood Urea Nitrogen 14 mg/dL (8-23); C Reactive Protein 38.7 mg/L (0.0-4.9); Calcium 9.1 mg/dL (8.5-10.5); Carbon Dioxide 25 mmol/L (22-29); Chloride 100 mmol/L (98-107); Creatinine Clr Calc Pharmacy 53.7545; Globulin 3.2 g/dL (1.3-4.6); Glucose 122 mg/dL (65-115); Magnesium 2.1 mg/dL (1.7-2.3); Osmolality Calculated 286 mOsm/kg (285-295); Sodium 137 mmol/L (136-145); Thyroid Stimulating Hormone 1.42 uIU/mL (0.27-4.20); Total Bilirubin 0.3 mg/dL (0.15-1.2); Uric Acid 6.8 mg/dL (3.4-7.0)
[2024-09-20 09:39] LABS: Anion Gap 16.6 (5-19); Aspartate Amino Transferase 17 U/L (0-40); Potassium 4.6 mmol/L (3.5-5.1)
[2024-09-20] MEDS: iohexol 350 mg/mL 500 mL Btl (per mL) IV ×2 (09:47→13:14)
[2024-09-20 10:03] LABS: Influenza A NEGATIVE (Negative); Influenza B NEGATIVE (Negative); Respiratory Syncytial Virus Ce NEGATIVE (Negative); SARS-CoV-2 PCR NEGATIVE (Negative)
[2024-09-20 10:20] LABS: Add Urine Microscopic? NO
[2024-09-20 10:36] LABS: Bilirubin Urine Neg (Negative); Blood Urine Neg (Negative); Glucose Urine UA Norm (Normal); Ketones Urine Negative (Negative); Leukocyte Esterase Urine Negative (Negative); Nitrate Urine Negative (Negative); Protein Urine Neg (Negative); Specific Gravity, Urine 1.015 (1.005-1.030); Urine Appearance Clear (CLEAR); Urine Color Yellow (Yellow); Urobilinogen Urine Norm (Negative); pH Urine 5 (5-7)
[2024-09-20 10:38] LABS: Charge for UA Resulting for Rev
[2024-09-20 10:43] LABS: Amphetamines Screen Urine Negative (Negative); Barbiturates Screen Urine Negative (Negative); Benzodiazepines Screen Urine Negative (Negative); Cocaine Screen Urine Negative (Negative); Opiate Screen Urine Negative (Negative); PCP Screen Urine Negative (Negative); THC Screen Urine Negative (Negative)
--- NOTE | 2024-09-20 11:00 | ECG_ITS ---
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
--- NOTE | 2024-09-20 11:00 | CT_ITS ---
WS: [id number] CT chest w con* [id number] HISTORY: AP window neck mass, abnormal CTA neck TECHNIQUE: Axial imaging performed through the thorax. Coronal and sagittal reformats are submitted. All CT scans at [facility] use at least one of these dose optimization techniques: automated exposure control; mA and/or kV adjustment per patient size (includes targeted exams where dose is matched to clinical indication); or iterative reconstruction. CONTRAST: Omnipaque 350; 100 mL IV. DLP: 331.64 mGy.cm COMPARISON: None available. Lungs and central airway: RIGHT lower lobe peripheral consolidation. Small bilateral pleural effusions. Deep to the RIGHT lower lobe consolidation is a small slightly loculated effusion measuring 3.4 x 1.4 cm. Pleura: See above Heart and pericardium: Normal size heart. Mediastinum and mis: Extensive mediastinal and hilar lymphadenopathy. High RIGHT paratracheal lymph node 1.5 cm. Additional scattered paratracheal lymph nodes. AP window lymph node 2.2 x 2.6 cm. Additional soft tissue infiltration throughout the mediastinal fat is probably extension of infiltration beyond the lymph node. Bilateral hilar, mediastinal and subcarinal adenopathy. These lymph nodes are hypervascular. Subcarinal lymph node is 2.5 cm in diameter. Abnormal esophagus. Mild diffuse esophageal wall thickening becomes more significant below the mike. There is a soft tissue mass protruding into the lumen of the distal esophagus. There is marked soft tissue thickening extending into the GE junction. There is hazy soft tissue attenuation surrounded the GE junction and nearly the entire stomach. There is diffuse stomach wall thickening. Infiltrating soft tissue along the lesser curvature into the gastrohepatic ligament is probably tumor infiltration. Vessels: Atherosclerosis aorta. Normal size pulmonary artery. No proximal emboli. Chest wall and lower neck: No soft tissue masses. Upper abdomen: Soft tissue mass in the lumen of the esophagus extends into the GE junction. Diffuse gastric wall thickening with central mesenteric lymph nodes and soft tissue attenuation along the gastrohepatic ligament and lesser curvature. Gastric lymph node 2.3 cm. Retrocrural lymph node 1.2 cm. Adrenal glands are negative. Gallbladder is contracted. Incompletely visualized large RIGHT renal cyst. Pancreatic duct is measuring slightly enlarged but no mass is identified. Hepatic steatosis within the visualized liver. Only a small portion of the SMV is included but there does appear to be thrombus at the portal splenic junction. Additional thrombus suspected in the main portal vein but this may be due to injection phase of the contrast also. Osseous structures: No bone lesions. CT/CT chest w con* [id number] IMPRESSION: 1. Extensive mediastinal and hilar lymphadenopathy. Hypervascular lymph nodes at multiple stations consistent with malignancy. Suspect extra renee extension as there is infiltration of soft tissue through the mediastinal fat. 2. Abnormal esophagus. Marked thickening of the distal esophagus with intralum inal mass. Abnormal findings extend into the GE junction and there is diffuse s tomach wall thickening and soft tissue infiltration surrounding the stomach and through the gastrohepatic ligament. Consistent with neoplasm. Suspect esophage al tumor or possible gastric carcinoma/linitis plastica. Upper endoscopy recomm ended. 3. Gastrohepatic ligament adenopathy and tumor infiltration with additional ly mphadenopathy towards the celiac axis and retrocrural. 4. Thrombus noted within the portosplenic junction extending into the SMV. Add itional thrombus is highly likely within the portal vein although opacification is limited due to phase of contrast injection. Tumor thrombus versus bland thr ombus. 5. Contracted gallbladder. 6. Peripheral consolidation RIGHT lower lobe with adjacent small pleural fluid consolidation. Additional very small bilateral layering pleural effusions. Ple ural effusions are not sufficient for thoracentesis. Notified Kurt Jolly DO at 09/20/2024 2:20 PM.
[2024-09-20 11:10] LABS: Troponin 5 2HR 48.09 ng/L (0-15); Troponin 5 2HR Delta 4.09 ABS# (0-10)
--- NOTE | 2024-09-20 15:00 | ECG_ITS ---
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
[2024-09-20 15:40] LABS: Troponin 5 6HR 70.92 ng/L (0-15)
[2024-09-20 15:44] LABS: Troponin 5 6HR Delta 26.92 ng/L (0-12)
[2024-09-20] MEDS: enoxaparin 80 mg/0.8 mL Syringe SUBCUT (17:50)
--- NOTE | 2024-09-20 18:29 | PC.NURSE ---
called to give pt report, was told they would call back for report. 183.
--- NOTE | 2024-09-20 19:22 | PC.NURSE ---
Spoke to Odilia and gave pt report to Latonia Caraballo RN at 1920. Also called pt's and gave her update and informed her of pt's room. Pt aware too.
== END 2024-09-20 23:02 | disposition short-term general hospital (02) ==
PROVIDERS: Emergency Provider Emergency Medicine; PCP Family Medicine
DX: R59.1 Generalized enlarged lymph nodes (principal); K22.89 Other specified disease of esophagus; K55.059 Acute (reversible) ischemia of intestine, part and extent unspecified; J90 Pleural effusion, not elsewhere classified; Z11.52 Encounter for screening for COVID-19; Z87.891 Personal history of nicotine dependence; I10 Essential (primary) hypertension
CPT/HCPCS: 36415; 70496; 70498; 71045; 71260; 80053; 80306; 81003; 83735; 84443; 84484; 84550; 85025; 85610; 86140; 87637; 93005; 96372; 99285; J1650